=== PATIENT | male | born 1970 ===

== ENCOUNTER 2017-01-24 19:37 | Emergency (ER) | payer SELFPAY ==
[2017-01-24 20:00] VITALS: BP 138/88
[2017-01-24] MEDS ORDERED: Sodium Chloride 0.9% 1,000 ML IV STA (20:26)
[2017-01-24] MEDS ORDERED: guaiFENesin-Codeine 100-10mg/5ml Syrup (5 ml) UD PO STA (20:27)
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
[2017-01-24] MEDS ORDERED: levoFLOXacin 750 mg in D5W 750 MG/150 ML BAG IVPB STA (21:32)
[2017-01-24] MEDS ORDERED: Levalbuterol 1.25 MG/3 ML Inhal Soln UD IH STA (21:32)
[2017-01-24 21:33] LABS: BASO # 0.02 K/mm3 (0.0-2.0); BASO % 0.2 % (0.0-3.0); EOS % 0.3 % (1.5-5.0); GRAN % 72.3 % (50.0-68.0); HEMOGLOBIN 15.5 gm/dL (14.0-18.0); LYMPH # 2.1 (1.2-3.4); LYMPH % 20.3 % (22.0-35.0); MEAN CELL VOLUME 85.5 fL (80.0-105.0); MEAN CORPUSCULAR HEMOGLOBIN 30.8 pg (25.0-35.0); MEAN PLATELET VOLUME 8.9 fl (7.0-11.0); MONO # 0.7 (0.1-0.6); MONO % 6.9 % (1.0-6.0); PLATELET COUNT 242 10^3/uL (120.0-450.0); RBC 5.04 10^6/uL (3.5-6.1); RED CELL DISTRIBUTION WIDTH 12.7 % (11.5-14.5); WHITE BLOOD COUNT 10.5 10^3/ul (4.5-11.0)
[2017-01-24 21:40] LABS: VENOUS BLOOD GAS PO2 78 mm/Hg (30-55)
[2017-01-24 21:43] LABS: ALB/GLOB RATIO 1.5 (1.1-1.8); ALBUMIN 4.7 g/dL (3.0-4.8); ALT/SGPT 57 U/L (7-56); AST/SGOT 42 U/L (15-59); BLOOD UREA NITROGEN 12 mg/dL (7-21); CALCIUM 9.9 mg/dL (8.4-10.5); GFR AFRICAN-AMERICAN > 60; GFR NON-AFRICAN AMERICAN > 60
[2017-01-24 21:55] LABS: TROPONIN I < 0.01 ng/mL
[2017-01-24 21:56] LABS: INFLUENZA A B NEGATIVE FOR FLU A/B (NEGATIVE)
[2017-01-24 23:40] VITALS: PULSE 80; TEMP 99.1
[2017-01-24 23:49] VITALS: RESP 16; O2SAT 98
--- NOTE | 2017-01-25 09:12 | RAD ---
HISTORY: cough COMPARISON: No prior. FINDINGS: LUNGS: Platelike atelectasis and/or scarring right mid lung zone. Right minimal fissural thickening can simulate this. PLEURA: No significant pleural effusion identified, no pneumothorax apparent. CARDIOVASCULAR: Mild left ventricular enlargement configuration suggested OSSEOUS STRUCTURES: No significant abnormalities. VISUALIZED UPPER ABDOMEN: Normal. OTHER FINDINGS: None. IMPRESSION: No consolidation. Subsegmental/ platelike discoid atelectasis and/or scarring -mid right lung.
--- NOTE | 2017-01-25 12:33 | CARD ---
APPROVED REPORT EKG Measurement Heart [id number] <Conclusion> Normal sinus rhythm Normal ECG
== END 2017-01-24 23:49 | disposition home or self-care (01) ==
LOC: ED 19:37
DX: J20.9 Acute bronchitis, unspecified (principal)
CPT/HCPCS: 71010; 80053; 82550; 82803; 83615; 84145; 84484; 85025; 87040; 87070; 87430; 87804; 93005; 99283; J7040